=== PATIENT | male | born 1935 | race Caucasian/White ===

== ENCOUNTER 2024-08-24 23:21 | Emergency (ER) | payer MEDICARE, BC ==
[~2024-08-24] VITALS: Ht 175.3 cm; Wt 71.8 kg
[2024-08-24] MEDS ORDERED: DOCU100C36 PO (23:44)
[2024-08-24] MEDS ORDERED: ALPR0.255 PO (23:44)
[2024-08-24] MEDS ORDERED: CITA10TA9 PO (23:44)
[2024-08-24] MEDS ORDERED: TRAM50TA2 PO (23:44)
[2024-08-24] MEDS ORDERED: MAGN250T37 PO (23:44)
[2024-08-24] MEDS ORDERED: CELE100C PO (23:44)
[2024-08-24] MEDS ORDERED: PSYL0.5211 PO (23:44)
[2024-08-24] MEDS ORDERED: MELA5TAB20 PO (23:44)
[2024-08-24] MEDS ORDERED: FINA5TAB11 PO (23:44)
[2024-08-24] MEDS ORDERED: ACET-3117 PO (23:44)
[2024-08-25 00:02] LABS: BASOPHILS # (AUTO) 0.1 K/UL (0.0-0.2); BASOPHILS % (AUTO) 0.7 % (0.0-2.0); EOSINOPHILS % (AUTO) 0.3 % (0.0-7.0); HEMATOCRIT 38.7 % (36.7-47.1); HEMOGLOBIN 13.2 g/dL (12.5-16.3); LYMPHOCYTES # (AUTO) 1.2 K/uL (0.8-4.8); LYMPHOCYTES % (AUTO) 13.8 % (20.5-51.5); MEAN CORPUSCULAR HGB CONC 34 g/dL (32.5-36.3); MEAN CORPUSCULAR VOLUME 94.1 fL (73.0-96.2); MONOCYTES # (AUTO) 0.7 K/uL (0.1-1.30); MONOCYTES % (AUTO) 8.2 % (0.0-11.0); NEUTROPHILS # (AUTO) 6.8 K/uL (1.8-8.9); PLATELET COUNT (AUTO) 230 K/uL (152-348); RED BLOOD CELL COUNT(AUTO) 4.12 MIL/uL (4.06-5.63); RED CELL DISTRIBUTION WIDTH 15.1 % (12.1-16.2); WHITE BLOOD COUNT (AUTO) 8.9 K/uL (3.6-10.2)
[2024-08-25 00:20] LABS: ALANINE AMINOTRANSFERASE 22 U/L (16-63); ALBUMIN 3.6 g/dL (3.4-5.0); ALKALINE PHOSPHATASE 254 U/L (50-136); ASPARTATE AMINOTRANSFERASE 10 U/L (15-37); BILIRUBIN,TOTAL 0.9 mg/dL (0.2-1.0); CARBON DIOXIDE 28 mmol/L (21-32); CHLORIDE 105 mmol/L (98-107); CREATININE 1.1 mg/dL (0.6-1.3); GLUCOSE 97 mg/dL (74-106); POTASSIUM 4.2 mmol/L (3.5-5.1); SODIUM SERUM 142 mmol/L (136-145); UREA NITROGEN, BLOOD 22 mg/dL (7-18)
[2024-08-25 01:01] LABS: *BLOOD, URINE 1+ (NEGATIVE); *CLARITY,URINE CLEAR (CLEAR); *COLOR,URINE YELLOW (YELLOW); *KETONES,URINE TRACE (NEGATIVE); *PROTEIN,URINE 1+ (NEGATIVE); LEUKOCYTE ESTERASE ,URINE NEGATIVE (NEGATIVE); NITRITE, URINE NEGATIVE (NEGATIVE); UGLUCOSE NEGATIVE (NEGATIVE)
[2024-08-25 01:10] LABS: *BILIRUBIN,URIN 1+ (NEGATIVE)
[2024-08-25 01:17] LABS: BACTERIA,URINE FEW /HPF (NONE SEEN)
[2024-08-25 01:18] LABS: MUCUS,URINE FEW /LPF (0-FEW); SQUAMOUS EPITHELIAL CELL,UR FEW /HPF (NONE SEEN); WAXY CASTS,URINE 0-3 /LPF (NONE SEEN)
[2024-08-25] MEDS: TDAP DIPH,PERTUSS,TET VAC/PF 0.5 ML DISP.SYRIN IM ONE (01:27)
[2024-08-25] MEDS ORDERED: CIPROFLOXACIN HCL 250 MG TABLET PO ONE (02:15)
[2024-08-25] MEDS ORDERED: CEFP200T14 PO (02:15)
[2024-08-25 02:45] VITALS: BP 100/74; TEMP 97.8; O2SAT 98
== END 2024-08-25 02:52 ==
LOC: ER 23:27
DX: S01.21XA Laceration without foreign body of nose, initial encounter (principal); S01.81XA Laceration without foreign body of other part of head, initial encounter; S80.211A Abrasion, right knee, initial encounter; S80.212A Abrasion, left knee, initial encounter; R51.9 Headache, unspecified; F03.90 Unspecified dementia, unspecified severity, without behavioral disturbance, psychotic disturbance, mood disturbance, and anxiety; N39.0 Urinary tract infection, site not specified; Z79.1 Long term (current) use of non-steroidal anti-inflammatories (NSAID); Z79.899 Other long term (current) drug therapy; Z88.2 Allergy status to sulfonamides; W18.39XA Other fall on same level, initial encounter; Y93.89 Activity, other specified; Y92.89 Other specified places as the place of occurrence of the external cause; Y99.8 Other external cause status
CPT/HCPCS: 36415; 70450; 71250; 72125; 84484; 85025; 85610; 90715; 93005; A4606; A4663; C1758